=== PATIENT | female | born 1930 | race Caucasian/White ===

== ENCOUNTER 2016-05-30 00:59 | Emergency (ER) | payer OTHER, MEDICARE ==
[~2016-05-30] VITALS: Ht 157.5 cm; Wt 65.8 kg
[~2016-05-30 00:59] MED LIST: ACEPHEN650 M1 PR; ADVAIR DISKUS1 UNIT INH; ALBUTEROL 3 ML3 ML INH; ALBUTEROL2.5 MG/3 M INH; AMIODARONE HCL200 M1 PO; AMIODARONE HCL200 MG PO; ASPIRIN CHILDRE81 MG PO; ATIVAN0.5 M1 PO; ATORVASTATIN CA40 MG PO; ATROVENT 0.02%2.5 ML INH; AZITHROMYCIN250 MG PO; AZITHROMYCIN500 MG PO; BIAXIN500 MG PO; BICARSIM80 M1 PO; BREO ELLIPTA 11 EACH PO; CALCIUM500 M1 PO; CARDIZEM CD120 MG PO; CARDIZEM CD180 MG PO; CEFTIN250 M1 PO; COLACE100 M1 PO; COMBIVENT RESPI1 SPR INH; COMPAZINE5 M1 PO; CORDARONE 200M200 MG PO; COUMADIN 2.5 M2.5 MG PO; COUMADIN 5 MG TA5 MG PO; CULTURELLE10 Billion PO; DIGOX0.125 MG PO; DILTIAZEM 24HR120 MG PO; DILTIAZEM HCL120 M2 PO; DOC-Q-LACE100 MG PO; DULCOLAX10 M1 PR; DUONEB 3 MG/3 ML3 ML INH/SOL; GABAPENTIN100 M2 PO; GABAPENTIN100 MG PO; GUAIFENESIN DM S5 ML PO; GUAIFENESIN400 MG PO; IPRAT-ALBUT 0.5-3 ML INH; IRON325 MG PO; LACTULOSE10 GM/153 PO; LIPITOR10 M1 PO; LOPRESSOR 6.26.25 MG PO; LOVENOX40 MG/0.1 SC; MAGNEBIND 3001 EACH PO; MAPAP325 M1 PO; MASON NATURAL325 MG PO; MELATONIN3 M4 PO; MEROPENEM1 GM IV; MILK OF MA400 MG/52 PO; MOXIFLOXACIN H400 M1 PO; MUCINEX ER600 MG PO; MUCINEX1200 MG PO; MYCOSTATIN POWD15 GM TOP; NEURONTIN100 MG PO; OMEPRAZOLE40 M1 PO; OMEPRAZOLE40 MG PO; PREDNISONE 10MG10 M1 PO; PREDNISONE 5 MG5 MG PO; PREDNISONE10 MG PO; PREDNISONE5 MG PO; PROAIR HFA0.09 MG/Ac INH; PROTONIX 40MG T40 MG PO; ROZEREM8 M1 PO; SENOKOT8.6 M2 PO; SOAP SUDS ENEMA PR; SPIRIVA 18 MCG18 MCG INH; SPIRIVA1 PUF INH; SPIRIVA18 MCG INH; SYMBICORT 80-10.2 GM INH; TRAMADOL HCL50 M1 PO; TRAZODO50 MG PO; TRAZODONE50 MG PO; TUMS500 MG PO; VITAB121000 PO; VITAMIN B-12500 MC2 PO; VITAMIN B12 1541 TAB PO; VITAMIN D1000 IU PO; VITAMIN D31000 UNI2 PO; VITAMIN D3400 IU PO; XARELTO10 MG PO; XARELTO15 MG PO; XARELTO20 MG PO; ZALEPLON10 MG PO; ZETIA10 MG PO; ZITHROMAX Z-PA250 M1 PO
--- NOTE | 2016-05-30 01:04 | ED MVC/FALL/TRAUMA COMPLAINT ---
History of Present Illness General Chief Complaint: Fall Stated Complaint: FALL Source: patient, old records, EMS, W10 Exam Limitations: no limitations Vital Signs & Intake/Output Vital Signs & Intake/Output Vital Signs Date Time Temp Pulse Resp B/P Pulse O2 O2 Flow FiO2 Ox Delivery Rate 05/30 0307 97.1 81 18 122/62 94 Nasal 2.0L Cannula 05/30 0112 96.8 79 16 122/61 98 Nasal 2.0L Cannula Allergies Coded Allergies: Penicillins (RASH 05/27/15) ampicillin (RASH 05/27/15) vancomycin (PER PT UNKNOWN REACTION 05/27/15) Reconcile Medications Acetaminophen (Mapap) 325 MG TABLET 2 TAB PO Q4H PRN PAIN/TEMP>101 (Reported) Acetaminophen (Acephen) 650 MG SUPP.RECT 1 SUPP RI Q4H PRN PAIN/TEMP>101 ( Reported) Albuterol Sulfate 2.5 MG/3 ML VIAL.NEB 1 Vial INH 4 TIMES/DAY PRN SOB ( Reported) Amiodarone HCl 200 MG TABLET 1 TAB PO DAILY HEART (Reported) Atorvastatin Calcium (Lipitor) 10 MG TABLET 1 TAB PO DAILY CHOLESTEROL ( Reported) Bisacodyl (Dulcolax) 10 MG SUPP.RECT 1 SUP RI DAILY PRN CONSTIPATION ( Reported) Budesonide/Formoterol Fumarate (Symbicort 80-4.5 Mcg Inhaler) 10.2 GM HFA.AER.AD 2 PUF INH BID COPD Calcium Carbonate (Calcium) 500 MG TABLET 1 TAB PO BID PRN ACID REFLUX ( Reported) Cefuroxime (Ceftin) 250 MG TABLET 1 TAB PO BID UTI Cholecalciferol (Vitamin D3) 1,000 UNIT TABLET 1 TAB PO DAILY SUPPLEMENT ( Reported) Cyanocobalamin (Vitamin B-12) (Vitamin B-12) 500 MCG TABLET 1 TAB PO Sunday SUPPLEMENT (Reported) Diltiazem HCl (Diltiazem 24HR ER) 120 MG CAP.ER.24H 1 CAP PO DAILY A-FIB ( Reported) Docusate Sodium (Colace) 100 MG CAPSULE 1 CAP PO DAILY STOOL SOFTENER ( Reported) Enoxaparin Sodium (Lovenox) 40 MG/0.4 ML SYRINGE 40 MG SC DAILY BLOOD THINNER Fluticasone/Vilanterol (Breo Ellipta 100-25 Mcg INH) 1 EACH BLST.W.DEV 1 INH PO DAILY COPD (Reported) Gabapentin 100 MG CAPSULE 1 CAP PO TID NEUROPATHY (Reported) Guaifenesin 400 MG TABLET 1 TAB PO BID PRN CONGESTION (Reported) Guaifenesin/Dextromethorphan (Guaifenesin Dm Syrup) 5 ML SYRUP 10 ML PO Q6H PRN COUGH (Reported) Ipratropium/Albuterol Sulfate (Iprat-Albut 0.5-3(2.5) MG/3 Ml) 3 ML AMPUL.NEB 3 ML INH Q6H COPD (Reported) Lactulose 10 GM/15 ML SOLUTION 15 ML PO DAILY BOWEL (Reported) Lorazepam (Ativan) 0.5 MG TABLET 0.25 MG PO Q12H PRN ANXIETY (Reported) Magnesium Hydroxide (Milk Of Magnesia) 400 MG/5 ML ORAL.SUSP 30 ML PO Q3D PRN CONSTIPATION (Reported) Metoprolol Tartrate (Lopressor) 6.25 MG TAB 1 TAB PO BID BLOOD PRESSURE Omeprazole 40 MG CAPSULE.DR 1 CAP PO DAILY GI (Reported) Prochlorperazine Maleate (Compazine) 5 MG TABLET 1 TAB PO Q8H PRN NAUSEA ( Reported) Ramelteon (Rozerem) 8 MG TABLET 1 TAB PO AT BEDTIME PRN INSOMNIA Sennosides (Senokot) 8.6 MG TABLET 1 TAB PO DAILY GI (Reported) Simethicone (Bicarsim) 80 MG TABLET 1 TAB PO Q8H PRN GAS (Reported) [SOAP SUDS ENEMA] 500 ML RI AD PRN CONSTIPATION (Reported) Tiotropium [place] (Spiriva) 18 MCG CAP.W.DEV 1 CAP INH DAILY COPD (Reported) Tramadol HCl 50 MG TABLET 0.5 TAB PO Q8H PRN PAIN UNRELIEVED BY APAP ( Reported) Triage Nurses Notes Reviewed? yes HPI: Patient was transferring from her bed to her wheelchair when she lost her balance and fell backwards. Patient landed on her buttocks and then her neck hit wastepaper basket. Patient denies hitting her head and there is no loss of consciousness. Patient is complaining of neck pain as well as pain to her sacral area. The pain in her neck is an achy sensation that increases with movement. There is no radiation. She rates the neck pain as 3 out of 10. There is no weakness or numbness. The pain to her sacral area is sharp and she rates it as 6 out of 10. There are no aggravating or mitigating factors. There is no radiation. There is no weakness or numbness. There is no incontinence of bowel or bladder. Past History Medical History Any Pertinent Medical History? see below for history Neurological: TIA, STROKE W/O RESIDUAL DEFICITS EENT: HEARLOSS, BILATERAL Cardiovascular: AFIB (ON XARELTO), cardiomyopathy, hypertension, myocardial infarction, NSTEMI, mitral valve prolapse Respiratory: bronchitis, COPD (on home oxygen), emphysema Gastrointestinal: irritable bowel syndrome, CHOLECYSTECTOMY APENDECTOMY colonoscopy 07/08 2 tubular adenomas, and 2 hyperplastic poyps and diverticulosis. EGD 06/07 mild gastritis, no avms, and no small bowel biopsy done. . 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 No Review of Systems Review of Systems Constitutional: Reports: no symptoms. Eyes: Reports: no symptoms. Ears, Nose, Throat, Mouth: Reports: no symptoms. Respiratory: Reports: no symptoms. Cardiovascular: Reports: no symptoms. Gastrointestinal/Abdominal: Reports: no symptoms. Genitourinary: Reports: no symptoms. Musculoskeletal: Reports: see HPI, back pain, neck pain. Skin: Reports: no symptoms. Neurological/Psychological: Reports: no symptoms. All Other Systems: Reviewed and Negative Physical Exam Physical Exam General Appearance: well developed/nourished, alert, awake, mild distress Head: atraumatic, normal appearance Eyes: Bilateral: PERRL, EOMI. Ears, Nose, Throat, Mouth: hearing grossly normal, moist mucous membrane Neck: normal inspection, supple, full range of motion, tender lateral, tender midline Respiratory: normal breath sounds, chest non-tender, no respiratory distress, lungs clear Cardiovascular: regular rate/rhythm, normal peripheral pulses Gastrointestinal: normal bowel sounds, soft, non-tender, no organomegaly Back: normal inspection, normal range of motion, vertebral tenderness Extremities: normal range of motion, pelvis stable Neurologic/Psych: no motor/sensory deficits, awake, alert, oriented x 3, normal mood/affect Skin: intact, normal color, warm/dry Core Measures ACS in differential dx? No Severe Sepsis Present: No Septic Shock Present: No Progress Differential Diagnosis: C/T/L spine injury, ICH Plan of Care: Orders Procedure Date/time Status CT LUMB SPINE WO IV CONTRAST 05/[address] HEAD WO IV CONTRAST 05/[address] CERV SPINE WO IV CONTRAST 05/30 102 Active Diagnostic Imaging: Viewed by Me: CT Scan. Discussed w/RAD: CT Scan. Radiology Impression: PATIENT: PARTHA HANSEN PRESENT AGE : 86 PATIENT ACCOUNT NO: [id number] : 31 LOCATION: [facility] ORDERING PHYSICIAN: BEAU JARAMILLO MD SERVICE DATE: 05/30/16 EXAM TYPE: CAT - CT LUMB SPINE WO IV CONTRAST EXAMINATION: CT LUMBAR SPINE WITHOUT CONTRAST CLINICAL INFORMATION: Fall, pain in sacral area COMPARISON: CT abdomen pelvis TECHNIQUE: Helical non-contrast CT images were obtained through the lumbar spine and 1.25 and 2.5 mm axial reconstructions were reviewed along with sagittal and coronal MPRs. DLP: 535.41 mGy-cm FINDINGS: There is anatomic alignment of the lumbar vertebral bodies and posterior elements. There is mild to moderate anterior compression deformity of T12. There is mild central compression deformity of L1 and L2. Vertebral body cement is present at L3-L5. There is prominent central compression deformity of L3. There is mild to moderate compression deformity centrally of L4. There is mild central compression deformity of L5. L2 compression deformity has mildly worsened since 10/03/2014; remaining vertebral bodies appears similar to that prior study. Multilevel facet arthropathy is present. Vacuum disc phenomenon is noted at T11- T12 and T12-L1. Punctate focus of vacuum disc phenomenon is also seen at L2-L3. There is contour deformity along the anterior margin of the sacrum at the level of S4, with a displaced osseous fragment which is new from prior and suspicious for acute fracture in the proper clinical setting. Adjacent presacral stranding is noted. The sacroiliac joints appear maintained. There is partial fatty atrophy of the paraspinal musculature. Dependent bibasilar pulmonary opacities are favored to reflect atelectasis. There is atherosclerotic calcification along the aorta and iliac arteries. Colonic diverticulosis is noted. IMPRESSION: 1. Sacral contour deformity with displaced osseous fragment along the anterior cortex of S4, suspicious for acute fracture in the setting of trauma. Adjacent presacral stranding is noted. 2. Multilevel degenerative changes and chronic appearing compression deformities in the lumbar spine. Mild L2 loss of height appears worsened from 10/03/2014; remaining lumbar vertebral bodies appears similar to prior. DICTATED BY: UJVENTINO PASCUAL MD DATE/TIME DICTATED:05/30/16309 ESTIMATOR PRINTING:LILY DATE/TIME TRANSCRIBED:05/30/16309 CONFIDENTIAL, DO NOT COPY WITHOUT APPROPRIATE AUTHORIZATION. <Electronically signed in Other Vendor System> SIGNED BY: JUVENTINO PASCUAL MD 05/30/16 0324, PATIENT: PARTHA HANSEN PRESENT AGE: 86 PATIENT ACCOUNT NO: [id number] : 31 LOCATION: [facility] ORDERING PHYSICIAN: BEAU JARAMILLO MD SERVICE DATE: 05/30/16 EXAM TYPE: CAT - CT CERV SPINE WO IV CONTRAST ; CT HEAD WO IV CONTRAST EXAMINATION: NONCONTRAST HEAD CT NONCONTRAST CERVICAL SPINE CT INDICATION INFORMATION: Fall, pain COMPARISON: 09/17/2013 TECHNIQUE: Separate noncontrast CT examinations of the head and cervical spine were performed. Coronal and sagittal images were created for each examination at the technologist workstation. DLP: 1354.75 mGy-cm FINDINGS: Head: There is no evidence of acute intracranial hemorrhage or territorial infarction. No abnormal mass-effect or midline shift is seen. Lopes to white matter differentiation is well preserved. No extra-axial fluid collections are identified. The ventricles are normal in size. There is moderate periventricular white matter hypoattenuation consistent with chronic small vessel ischemic disease. Mild volume loss is noted. The osseous structures and soft tissues are normal. The mastoid air cells and visualized portions of the paranasal sinuses are well- aerated. Cervical spine: There is anatomic alignment of the vertebral bodies and posterior elements. There is degenerative change at the atlantodens articulation. Cervical vertebral body heights are maintained. Disc space narrowing is noted, most prominently at C4-C5. Multilevel endplate osteophytes are noted. Multilevel facet arthropathy is present. No evidence of acute fracture. No prevertebral soft tissue swelling. Chronic anterior wedge compression deformities of T4 and T5 are noted, similar to slightly worsened compared to prior chest CT of 10/12/2014. Visualized portions of the lung apices are unremarkable. The thyroid gland is unremarkable. IMPRESSION: 1. Head: No acute intracranial findings. Chronic small vessel ischemic disease and volume loss. 2. Cervical spine: No acute findings identified. Degenerative changes as detailed above. DICTATED BY: JUVENTINO PASCUAL MD DATE/TIME DICTATED:05/30/16299 ESTIMATOR PRINTING:LILY DATE/TIME TRANSCRIBED:05/30/16299 CONFIDENTIAL, DO NOT COPY WITHOUT APPROPRIATE AUTHORIZATION. <Electronically signed in Other Vendor System> SIGNED BY: JUVENTINO PASCUAL MD 05/30/16311 Departure Departure Disposition: ACUTE REHAB FACILITY Condition: Stable Clinical Impression Primary Impression: Sacral fracture, closed Qualifiers: Encounter type: initial encounter Referrals: DARBY GARCIA,ADRIAN Newman (PCP/Family) Departure Forms: Customer Survey General Discharge Information
[2016-05-30 03:07] VITALS: BP 122/62
--- NOTE | 2016-05-30 03:12 | CT SCAN REPORT ---
EXAMINATION: NONCONTRAST HEAD CT NONCONTRAST CERVICAL SPINE CT INDICATION INFORMATION: Fall, pain COMPARISON: 09/17/2013 TECHNIQUE: Separate noncontrast CT examinations of the head and cervical spine were performed. Coronal and sagittal images were created for each examination at the technologist workstation. DLP: 1354.75 mGy-cm FINDINGS: Head: There is no evidence of acute intracranial hemorrhage or territorial infarction. No abnormal mass-effect or midline shift is seen. Lopes to white matter differentiation is well preserved. No extra-axial fluid collections are identified. The ventricles are normal in size. There is moderate periventricular white matter hypoattenuation consistent with chronic small vessel ischemic disease. Mild volume loss is noted. The osseous structures and soft tissues are normal. The mastoid air cells and visualized portions of the paranasal sinuses are well-aerated. Cervical spine: There is anatomic alignment of the vertebral bodies and posterior elements. There is degenerative change at the atlantodens articulation. Cervical vertebral body heights are maintained. Disc space narrowing is noted, most prominently at C4-C5. Multilevel endplate osteophytes are noted. Multilevel facet arthropathy is present. No evidence of acute fracture. No prevertebral soft tissue swelling. Chronic anterior wedge compression deformities of T4 and T5 are noted, similar to slightly worsened compared to prior chest CT of 10/12/2014. Visualized portions of the lung apices are unremarkable. The thyroid gland is unremarkable. IMPRESSION: 1. Head: No acute intracranial findings. Chronic small vessel ischemic disease and volume loss. 2. Cervical spine: No acute findings identified. Degenerative changes as detailed above.
--- NOTE | 2016-05-30 03:24 | CT SCAN REPORT ---
EXAMINATION: CT LUMBAR SPINE WITHOUT CONTRAST CLINICAL INFORMATION: Fall, pain in sacral area COMPARISON: CT abdomen pelvis 10/03/2014 TECHNIQUE: Helical non-contrast CT images were obtained through the lumbar spine and 1.25 and 2.5 mm axial reconstructions were reviewed along with sagittal and coronal MPRs. DLP: 535.41 mGy-cm FINDINGS: There is anatomic alignment of the lumbar vertebral bodies and posterior elements. There is mild to moderate anterior compression deformity of T12. There is mild central compression deformity of L1 and L2. Vertebral body cement is present at L3-L5. There is prominent central compression deformity of L3. There is mild to moderate compression deformity centrally of L4. There is mild central compression deformity of L5. L2 compression deformity has mildly worsened since 10/03/2014; remaining vertebral bodies appears similar to that prior study. Multilevel facet arthropathy is present. Vacuum disc phenomenon is noted at T11-T12 and T12-L1. Punctate focus of vacuum disc phenomenon is also seen at L2-L3. There is contour deformity along the anterior margin of the sacrum at the level of S4, with a displaced osseous fragment which is new from prior and suspicious for acute fracture in the proper clinical setting. Adjacent presacral stranding is noted. The sacroiliac joints appear maintained. There is partial fatty atrophy of the paraspinal musculature. Dependent bibasilar pulmonary opacities are favored to reflect atelectasis. There is atherosclerotic calcification along the aorta and iliac arteries. Colonic diverticulosis is noted. IMPRESSION: 1. Sacral contour deformity with displaced osseous fragment along the anterior cortex of S4, suspicious for acute fracture in the setting of trauma. Adjacent presacral stranding is noted. 2. Multilevel degenerative changes and chronic appearing compression deformities in the lumbar spine. Mild L2 loss of height appears worsened from 10/03/2014; remaining lumbar vertebral bodies appears similar to prior.
== END 2016-05-30 03:50 ==
LOC: ERH 00:59
DX: S32.10XA Unspecified fracture of sacrum, initial encounter for closed fracture (principal); S19.9XXA Unspecified injury of neck, initial encounter; W06.XXXA Fall from bed, initial encounter; Y93.89 Activity, other specified; Y92.9 Unspecified place or not applicable